=== PATIENT | female | born 1965 ===

== ENCOUNTER 2017-12-12 08:15 | Inpatient (IN) | payer BC ==
[~2017-12-12 08:15] MED LIST: Acetaminophen TAB* 325 MG PO ONE; Buffered Lidocaine 0.9% SYRIN* 5 ML/SYR SYRINGE INTRADERM ONE; Famotidine IV* 10 MG/ML 2 ML (20 mg) IV ONE; Ondansetron INJ* 2 MG/ML VIAL IV ONE
[2017-12-12] MEDS ORDERED: ROPIVACAINE 5 MG/ML 30 ML BTL (0.5%) ONE (09:00)
[2017-12-12] MEDS ORDERED: Famotidine IV* 10 MG/ML 2 ML (20 mg) ONE (09:00)
[2017-12-12] MEDS ORDERED: fentaNYL* 50 MCG/ML 2 ML VIAL (100 MCG VIAL) ONE ×4 (09:00→15:14)
[2017-12-12] MEDS ORDERED: Midazolam* 1 MG/ML 10 ML VIAL (10 MG) ONE (09:00)
[2017-12-12] MEDS ORDERED: Propofol* 10 MG/ML 20 ML BTL IV PUSH ONE (09:00)
[2017-12-12] MEDS ORDERED: KETAMINE HCL* 50 MG/ML 10 ML VIAL ONE (09:00)
[2017-12-12] MEDS ORDERED: Dexamethasone IV* 4 MG/ML 1 ML (4 MG) ONE (09:00)
[2017-12-12] MEDS ORDERED: Lidocaine 2% PF * 5 ML VIAL ONE (09:00)
[2017-12-12] MEDS ORDERED: Ondansetron ODT TAB* 4 MG ONE ×3 (09:00→14:43)
[2017-12-12] MEDS ORDERED: Acetaminophen TAB* 325 MG ONE (09:00)
[2017-12-12] MEDS ORDERED: ceFAZolin 2 GM PREMIX (*) 2 GM/50 ML BAG IVPB ONE (09:00)
[2017-12-12] MEDS ORDERED: Buffered Lidocaine 0.9% SYRIN* 5 ML/SYR SYRINGE ONE (09:01)
[2017-12-12] MEDS ORDERED: Bupivacaine 0.5% PF 10 ML VIAL INJ ONE (10:35)
[2017-12-12] MEDS ORDERED: Lidocaine 1% MPF wEPI 200,000* 30 ML SDV ONE (10:35)
[2017-12-12] MEDS ORDERED: Phenylephrine INJ* 10 MG/ML 1 ML VIAL (10 MG) ONE (11:05)
[2017-12-12] MEDS ORDERED: Ketorolac INJ* 30 MG/ML 1 ML VIAL ONE (11:38)
[2017-12-12] MEDS ORDERED: Naloxone* 0.4 MG/ML 1 ML VIAL IV PRN (12:03)
[2017-12-12] MEDS ORDERED: DiMENhydriNATE IV* 50 MG/ML VIAL IV PUSH PRN (12:03)
[2017-12-12] MEDS ORDERED: Ondansetron ODT TAB* 4 MG PO PRN (12:03)
[2017-12-12] MEDS ORDERED: HYDROmorphone INJ* 1 MG/ML CARPUJECT SYRINGE IV PRN (12:03)
[2017-12-12] MEDS ORDERED: HYDROmorphone INJ* 0.5 MG/0.5 ML SYRINGE ONE ×2 (12:49→12:53)
[2017-12-12] MEDS ORDERED: Magnesium Hydroxide LIQ* 30 ML UDC PO PRN (13:17)
[2017-12-12] MEDS ORDERED: diPHENhydraMINE IV* 50 MG/ML 1 ml VIAL (BENADRYL) IV PRN (13:17)
[2017-12-12] MEDS ORDERED: diPHENhydraMINE PO* 25 MG PO PRN (13:17)
[2017-12-12] MEDS ORDERED: Morphine VIAL* 4 MG/ML VIAL (1 ml vial) IV PRN (13:17)
[2017-12-12] MEDS ORDERED: HYDROmorphone INJ* 2 MG/ML CARPUJECT SYRINGE ONE (13:51)
[2017-12-12] MEDS: fentaNYL* 50 MCG/ML 2 ML VIAL (100 MCG VIAL) IV PRN ×3 (13:54→15:18)
[2017-12-12] MEDS ORDERED: DiMENhydriNATE IV* 50 MG/ML VIAL ONE (14:06)
--- NOTE | 2017-12-12 14:06 | RAD ---
Indication: Bipolar right knee arthroplasty. 2 views of the right knee demonstrates right knee replacement in satisfactory position. No evidence of periprosthetic fracture is noted. Surgical clips are noted. IMPRESSION: Right knee replacement in satisfactory position.
[2017-12-12] MEDS ORDERED: Dextrose 50% Syringe 50 ML* 25 GM/50 ML SYRINGE IV PUSH PRN (14:31)
[2017-12-12] MEDS: D5W 1/2 NS 1000 ML BAG* 1,000 ML IV SCH (16:25)
[2017-12-12] MEDS: Acetaminophen TAB* 325 MG PO SCH ×2 (16:33→21:37)
[2017-12-12] MEDS ORDERED: traMADol TAB* 50 MG ONE (16:39)
[2017-12-12] MEDS ORDERED: oxyCODONE TAB* 5 MG TAB ONE (16:39)
[2017-12-12] MEDS: traMADol TAB* 50 MG PO SCH ×2 (16:41→21:36)
[2017-12-12] MEDS: oxyCODONE TAB* 5 MG TAB PO PRN (16:42)
[2017-12-12] MEDS ORDERED: Warfarin TAB(*) 10 MG PO ONE (17:00)
[2017-12-12] MEDS: Insulin LISPRO* 1 UNITS UNIT SUBCUT SCH (18:31)
[2017-12-12] MEDS: ceFAZolin 1 GM in Dextrose (*) 1 GM/50 ML BAG IVPB SCH (19:41)
--- NOTE | 2017-12-12 21:31 | CONS ---
HOSPITAL MEDICINE CONSULTATION REPORT: DATE OF CONSULT: 12/12/17 ATTENDING PHYSICIAN: Dr. Mejia Hughes. CONSULTING PHYSICIAN: Dr. Feliz Anderson (dictation provided by Mamta Cisse NP) . REASON FOR CONSULT: Medical co-management in a patient admitted for right total knee arthroplasty. HISTORY OF PRESENT ILLNESS: Ms. Fernandez is a 52-year-old female with a past medical history of hypertension; report of MA 32 years ago, which would have been at age 20; diabetes, who presents to the hospital today with plan for a right total knee arthroplasty with Dr. Mejia Hughes. Please see the dictated H and P from Dr. Hughes for complete details, but in brief, the patient had ongoing pain to her right knee for over 10 years without much improvement with conservative medical therapy and therefore opted for surgical intervention today. Prior to surgery, the patient did have preoperative clearance with her primary care provider, Zina Lopez DO. It was noted there that the patient has had no report of chest pain or shortness of breath keeping with her activity level. It was noted also that she had an echocardiogram in 2016 as well as a Holter monitor in 2017, which showed only benign PVCs. In addition, her diabetes is under good control on the current regimen. PAST MEDICAL HISTORY: 1. Type 2 diabetes, non-insulin dependent. 2. Hypertension. 3. Osteoarthritis. 4. History of question MA 32 years ago at the time of the . 5. Diverticulitis. 6. PVCs. MEDICATIONS: 1. Potassium 1 tab p.o. daily. 2. Pioglitazone 30 mg p.o. q.a.m. 3. Hydrochlorothiazide 50 mg p.o. q.a.m. 4. Gabapentin 100 mg p.o. q.a.m. 5. Diclofenac 50 mg p.o. q.a.m. 6. Duloxetine DR 60 mg p.o. q.a.m. 7. Bisoprolol 10 mg p.o. q.a.m. 8. Amlodipine 5 mg p.o. q.a.m. ALLERGIES: To CODEINE, LISINOPRIL, METOPROLOL, SULFA ANTIBIOTICS, and SUCCINATE. FAMILY HISTORY: The patient reports family history positive for "heart troubles ," diabetes, and cancer. SOCIAL HISTORY: She has never been a smoker. No report of alcohol use. She lives with her , who is her healthy proxy. REVIEW OF SYSTEMS: A very brief 14-point review of systems was completed with Ms. Fernandez in the immediate postoperative period as she was very drowsy, which she did not offer any acute complaints or positive findings. PHYSICAL EXAM: Vital Signs: Temperature 97.7, pulse rate 77, respiratory rate 11, O2 saturation 94% on 4 L nasal cannula, blood pressure 94/51. General: Ms. Fernandez is lying in the bed. She is very drowsy, but awakens easily to voice. Neuro: She is again drowsy, awakens easily to voice. She is oriented x3. She moves all extremities equally. There is no facial asymmetry or focal weakness. Extraocular movements are intact. Heart: S1, S2. No murmur, rub, or gallop, and regular. Lungs are clear to auscultation bilaterally with no accessory muscle use and good aeration. The abdomen is soft, nontender with bowel sounds positive x4. Extremities: No cyanosis or edema. Skin is intact other than the right knee incision, which was not assessed as this is the immediate postoperative period. LABORATORY DATA: Preoperatively, the WBC was 9.2, hemoglobin 14.4, hematocrit 42%, platelet count 330. Sodium 138, potassium 3.4, chloride 96, serum bicarbonate 33, BUN 10, creatinine 0.77, glucose 179. Last available hemoglobin A1c was 5.9 on 08/30/17. ASSESSMENT AND PLAN: Ms. Fernandez is a 52-year-old female with past medical history of diabetes, report of myocardial infarction 32 years ago at age 20 during a C- section, and hypertension, who presents today to the hospital with plan for right total knee arthroplasty. Our recommendations are as follows: 1. Postop day #0 status post right total knee arthroplasty: Management of the patient will continue to be per orthopedic services team. PT and occupational therapy have been ordered. Pain medication and bowel regimen have been ordered. We will continue to follow along with H and H to assess for acute blood loss anemia. 2. Hypertension. Plan to continue bisoprolol with hold parameters. We will hold amlodipine and hydrochlorothiazide in the immediate perioperative period. The patient's blood pressure is running on the lower side at this point. 3. Type 2 diabetes. Plan to hold pioglitazone and provide blood glucoses q.a.c. with lispro sliding scale. 4. DVT prophylaxis with warfarin per Ortho. 5. Code status is full code. 6. Disposition: To surgical floor. TIME SPENT: Approximately 60 minutes was spent on the consultation of this patient with more than half the time spent with her at the bedside reviewing the events leading up to this hospitalization, performing the physical examination, and reviewing my plan of care. MAMTA CISSE NP [id number]/[facility] #: [id number] IVANNA
[2017-12-12] MEDS: Docusate CAP* 100 MG PO SCH (21:36)
[2017-12-12] MEDS: Magnesium Hydroxide LIQ* 30 ML UDC PO SCH (21:38)
[2017-12-13] MEDS: D5W 1/2 NS 1000 ML BAG* 1,000 ML IV SCH (02:32)
[2017-12-13] MEDS: traMADol TAB* 50 MG PO SCH ×5 (02:45→21:15)
[2017-12-13] MEDS: ceFAZolin 1 GM in Dextrose (*) 1 GM/50 ML BAG IVPB SCH ×2 (02:49→11:54)
[2017-12-13] MEDS: Acetaminophen TAB* 325 MG PO SCH ×3 (06:06→22:12)
[2017-12-13 07:05] LABS: Hematocrit 34 % (35-47); Hemoglobin 11.8 g/dl (12.0-16.0); Mean Platelet Volume 8.2 um3 (7.4-10.4); Platelet Count 270 10^3/ul (150-450)
[2017-12-13 07:16] LABS: INR 0.94 (0.77-1.02)
[2017-12-13 07:20] LABS: EGFR Non-African American 90.5 (>60)
--- NOTE | 2017-12-13 07:29 | OP ---
DATE OF OPERATION: 12/12/17 - ROOM #343 DATE OF : 63 SURGEON: Mejia Hughes MD MEAT AND POULTRY INSPECTOR: ANASTASIIA Gates ANESTHESIA: General. PRE-OP DIAGNOSIS: Osteoarthritis, right knee POST-OP DIAGNOSIS: Osteoarthritis, right knee OPERATIVE PROCEDURE: Right total knee arthroplasty. ESTIMATED BLOOD LOSS: Less than 50 cc. COMPLICATIONS: None. HARDWARE: Ronna Persona #4 femur, D tibia, 10-mm polyethylene, 32-mm all- polyethylene patellar-button. SUMMARY: Ms. Fernandez is a 52-year-old female who has had a long history of troubles with both of her knees. She had undergone a left medial compartment arthroplasty over 10 years ago, and even that is giving her troubles. The right knee had continued to give her more pain and troubles and is not just on the medial side, but also in the patellofemoral compartment. She had some very specific spurs in the patellofemoral compartment and was [id number] in the medial compartment. I discussed with her total knee arthroplasty. She had worked well to decrease her pain and improve her function versus surgery such as infection, scar formation, stiffness, DVT, pulmonary embolism, hardware failure, and continued pain with some of the risks discussed. She had been declared medically optimized and wished to proceed. DESCRIPTION OF PROCEDURE: The patient was brought to the OR and general anesthesia was established. Hidalgo catheter was placed. Tourniquet was placed over the proximal right thigh and was used during the case. Total tourniquet time would be 72 minutes. Moriah Friedman was present for all stages of the case and including prepping, positioning, retracting and placement of the components. The case could not have been done without legislative assistant. Right knee was prepped and then draped. Skin over the incisional area was infiltrated using 10 cc of 0.5% Marcaine mixed with 1% lidocaine with epinephrine. Total of 60 cc of that mixture would be used including 10 cc in each of the gutters, 20 behind the knee and another 10 in the suprapatellar pouch. Esmarch was used to exsanguinate the leg and the tourniquet was raised. Tourniquet time would be approximately 72 minutes. Incision was made centered about patellar was carried down to the medial side of the tibial tubercle. Small bleeders encountered were ligated using electrocautery. Extensor mechanism was exposed and a sharp parapatellar arthrotomy was made. Quite a bit of clear yellowish joint fluid was encountered. Soft tissues were sharply elevated from the medial side of the tibia, and the fat pad was sharply excised. Patella measured 23 mm in thickness and a nice 10-mm cut was taken. Patella was then easily subluxated laterally and the knee was flexed up. Distal femur was nicely exposed and a step drill was used to open the femoral canal. Intramedullary guide was placed and adjusted until it was parallel with the epicondyle. Distal femoral cutting guide was then pinned into place and the intramedullary guide was removed. Guide had been set at 2 mm and 2 degrees, as I did not want to take a significant amount of bone from the lateral femoral condyle. The cut appeared that it would not and the distal femoral cut was taken. Cut appeared to be benign. Sizer was place and she sat between 4 and 5. Four block was called for and holes were drilled. Four cutting block was placed and the superior drill hole was run and the drill came out nicely right on the top side of the femur. Anterior and posterior femoral cuts followed by the chamfer cuts were taken. Cutting guide was removed and excess bone was removed. Attention was turned to the tibia. Step drill was used to open the tibial canal, but even with the wider part having gone into most of the foot print of the ACL, I feel difficulty trying to seek the intramedullary guide and it seemed to sit a little bit towards a valgus angle. Extramedullary guide was then called for and measured, so that we would take 2 mm from the worn on the medial side. Cutting guide was then pinned into place and the proximal tibial cut was taken. A 10 spacer block was placed and the cut appeared to be excellent. In full extension, she locked out nicely with good stability and in flexion, she was little bit lose which was appropriate, as this system is designed to take 2 mm more posteriorly than distally. Tibia was sized and the E seemed to have to rotate more externally in order to be properly seated, so D was selected. Tibia was then pinned into place and the proximal tibia was drilled and then punched. Attention was returned to the femur. Femoral trial was placed and the notch cut was finished and the stent holes were drilled. She was trialed with a 10 polyethylene and came out nicely into full extension, and still flexed quite well. Patella wants to subluxate about every other time and patella was sized 32 sat nicely and holes were drilled and trial was placed with the trial on the patella tracking now was fine. Trial instrumentation was removed, and the knee was copiously pulse lavaged. Cement was being prepared. Tibia followed by femur and patella were all cemented into place. Excess cement was removed and the cement was allowed to harden. Once the cement was hardened , the knee was again searched for excess cement and a few small pieces were found. Knee was again copiously pulse lavaged. She was again trialed with the 10, and the same wonderful motion and stability. A 10-polyethylene was then snapped into place. Knee was again copiously pulse lavaged and the parapatellar arthrotomy was repaired using interrupted #1 Vicryl sutures. Subcutaneous tissues were reapproximated using 2-0 Vicryl. Skin was closed using cayla. Sterile dressing and a Cry/Cuff were applied in the OR. The patient was then awakened in the OR and was stable on transferred to the recovery room. [id number]/[facility] #: [id number] IVANNA
[2017-12-13] MEDS: oxyCODONE TAB* 5 MG TAB PO PRN ×3 (07:53→21:15)
[2017-12-13] MEDS: Cyclobenzaprine TAB* 10 MG PO PRN ×2 (07:54→15:26)
--- NOTE | 2017-12-13 08:45 | PN ---
Progress Note - Progress Note Date of Service: 12/13/17 SOAP: Subjective: patient in bed with moderate right knee pain, reports falling in bathroom about 1 hour ago with increased knee pain Objective: Vital Signs Temp Pulse Resp BP Pulse Ox 98.5 F 80 16 119/42 97 12/13/17 07:25 12/13/17 07:25 12/13/17 07:54 12/13/17 07:25 12/13/17 07:25 Laboratory Last Values Hgb 11.8 g/dl (12.0-16.0) L 12/13/17 06:38 Hct 34 % (35-47) L 12/13/17 06:38 Plt Count 270 10^3/ul (150-450) 12/13/17 06:38 MPV 8.2 um3 (7.4-10.4) 12/13/17 06:38 INR (Anticoag Therapy) 0.94 (0.77-1.02) 12/13/17 06:38 Sodium 137 mmol/L (135-145) 12/13/17 06:38 Potassium 3.6 mmol/L (3.5-5.0) 12/13/17 06:38 Chloride 99 mmol/L (101-111) L 12/13/17 06:38 Carbon Dioxide 31 mmol/L (22-32) 12/13/17 06:38 Anion Gap 7 mmol/L (2-11) 12/13/17 06:38 BUN 13 mg/dL (6-24) 12/13/17 06:38 Creatinine 0.68 mg/dL (0.51-0.95) 12/13/17 06:38 Est GFR ( Amer) 109.5 (>60) 12/13/17 06:38 Est GFR (Non-Af Amer) 90.5 (>60) 12/13/17 06:38 BUN/Creatinine Ratio 19.1 (8-20) 12/13/17 06:38 Glucose 130 mg/dL (70-100) H 12/13/17 06:38 POC Glucose (mg/dL) 191 mg/dL (70-100) H 12/12/17 16:45 Calcium 8.9 mg/dL (8.6-10.3) 12/13/17 06:38 incision: c/d/i PE:able to dorsi flex/plantar flex, 2+DP pulse, intact sensation Assessment: s/p right TKA; POD #1 Plan: 1) urgent right knee x ray ordered; await results 2) PT/OT-WBAT 3) Abx for 24 hours post-op 4) Heparin/Coumadin for DVT prophylaxis
[2017-12-13] MEDS ORDERED: Bisoprolol TAB* 5 MG PO SCH (09:00)
[2017-12-13] MEDS ORDERED: Pioglitazone TAB* 30 MG PO SCH (09:00)
[2017-12-13] MEDS: DULoxetine DR CAP* 60 MG CAP.DR PO SCH (09:06)
[2017-12-13] MEDS: Gabapentin CAP(*) 100 MG PO SCH (09:07)
[2017-12-13] MEDS: Potassium Chlor TAB* 20 MEQ TAB.ER PO SCH (09:07)
[2017-12-13] MEDS: Docusate CAP* 100 MG PO SCH ×2 (09:07→20:52)
[2017-12-13] MEDS: Bisoprolol TAB* 5 MG PO SCH (09:08)
[2017-12-13] MEDS: Magnesium Hydroxide LIQ* 30 ML UDC PO SCH ×2 (09:08→20:54)
[2017-12-13] MEDS: Insulin LISPRO* 1 UNITS UNIT SUBCUT SCH ×3 (09:16→18:24)
[2017-12-13] MEDS: Morphine VIAL* 4 MG/ML VIAL (1 ml vial) IV PRN ×3 (10:07→17:06)
--- NOTE | 2017-12-13 13:16 | RAD ---
Indication: Right knee replacement. 2 views of the right knee demonstrates right knee replacement in satisfactory position. Bipolar knee arthroplasty is noted. No evidence of periprosthetic fracture is noted. IMPRESSION: Right knee replacement. No definite evidence of periprosthetic fracture.
[2017-12-13] MEDS: Heparin VIAL(*) 5000 UNITS/ML VIAL (FIVE THOUSAND) SUBCUT SCH ×2 (15:30→22:13)
--- NOTE | 2017-12-13 16:24 | PN ---
Subjective Date of Service: 12/13/17 Interval History: Patient complains of severe pain in leg after mechanical fall related to tipping of the cover on the toilet as she was sitting down. Patient denies head trauma or LOC but states that she feels like the back of her thigh is strained and occasionally has shooting pain down the front of her leg. Patient denies F/C , N/V, abdominal pain, CP, SOB, dysuria, or other pain. Patient was recently changed from metformin to pioglitazone and reports better control of her diabetes. Family History: Unchanged from Admission Social History: Unchanged from Admission Past Medical History: Unchanged from Admission Objective Active Medications: Acetaminophen (Tylenol Tab*) 975 mg PO Q8HR [facility] Last Admin: 12/13/17 15:26 Dose: 975 mg Bisoprolol Fumarate (Zebeta Tab*) [facility] [place] Last Admin: 12/13/17 09:08 Dose: 10 mg Cyclobenzaprine HCl (Flexeril Tab*) 10 mg PO TID PRN PRN Reason: SPASMS Last Admin: 12/13/17 15:26 Dose: 10 mg Dextrose (D50w Syringe 50 Ml*) 12.5 gm IV PUSH .FOR FS < 60 - SS PRN PRN Reason: FS < 60 Diphenhydramine HCl (Benadryl Iv*) 25 mg IV Q6H PRN PRN Reason: itching Diphenhydramine HCl (Benadryl Po*) 25 mg PO Q6H PRN PRN Reason: itching Docusate Sodium (Colace Cap*) 100 mg PO BID [facility] Last Admin: 12/13/17 09:07 Dose: 100 mg Duloxetine HCl (Cymbalta Cap*) 60 mg PO QAM [facility] Last Admin: 12/13/17 09:06 Dose: 60 mg Gabapentin (Neurontin Cap(*)) 100 mg PO QAM [facility] Last Admin: 12/13/17 09:07 Dose: 100 mg Heparin Sodium (Porcine) (Heparin Vial(*)) 5,000 units SUBCUT Q8HR [facility] Last Admin: 12/13/17 15:30 Dose: 5,000 units Dextrose/Sodium Chloride (D5w 1/2 Ns 1000 Ml Bag*) 1,000 mls @ 100 mls/hr IV PER RATE [facility] Last Admin: 06/26/18 02:32 Dose: 100 mls/hr Insulin Human Lispro (Humalog*) 0 units SUBCUT AC [facility]; Protocol Last Admin: 12/13/17 12:08 Dose: 2 unit Magnesium Hydroxide (Milk Of Magnesia Liq*) 30 ml PO BID [facility] Last Admin: 12/13/17 09:08 Dose: 30 ml Magnesium Hydroxide (Milk Of Magnesia Liq*) 30 ml PO Q6H PRN PRN Reason: constipation Morphine Sulfate (Morphine Vial*) 2 mg IV Q2H PRN PRN Reason: PAIN - UNRELIEVED Last Admin: 12/13/17 07:20 Dose: 2 mg Morphine Sulfate (Morphine Vial*) 4 mg IV Q2H PRN PRN Reason: PAIN - UNRELIEVED Last Admin: 12/13/17 12:08 Dose: 4 mg Oxycodone HCl (Roxycodone Tab*) 5 mg PO Q4H PRN PRN Reason: PAIN - SEVERE Last Admin: 12/13/17 07:53 Dose: 5 mg Pharmacy Profile Note (Coumadin Daily Reminder*) 1 note FOLLOW UP 1700 [facility] Potassium Chloride (Klor Con Er Tab*) 20 meq PO DAILY [facility] Last Admin: 12/13/17 09:07 Dose: 20 meq Tramadol HCl (Ultram*) 50 mg PO Q6H [facility] Last Admin: 12/13/17 15:27 Dose: 50 mg Warfarin Sodium (Coumadin Tab(*)) 8 mg PO ONCE@1700 [facility]; Protocol Stop: 12/13/17 17:01 Vital Signs - 8 hr 12/13/17 12/13/17 12/13/17 08:20 09:00 09:07 Temperature Pulse Rate Respiratory 16 16 16 Rate Blood Pressure (mmHg) O2 Sat by Pulse 97 Oximetry 12/13/17 12/13/17 12/13/17 10:00 10:07 11:14 Temperature 98.9 F Pulse Rate 65 Respiratory 16 16 16 Rate Blood Pressure 110/47 (mmHg) O2 Sat by Pulse 96 Oximetry 12/13/17 12/13/17 12/13/17 11:15 12:08 13:36 Temperature Pulse Rate Respiratory 16 16 16 Rate Blood Pressure (mmHg) O2 Sat by Pulse Oximetry 12/13/17 12/13/17 12/13/17 13:43 15:26 15:27 Temperature 98.3 F Pulse Rate 69 Respiratory 24 16 Rate Blood Pressure 107/56 (mmHg) O2 Sat by Pulse 97 100 Oximetry 12/13/17 16:00 Temperature Pulse Rate Respiratory Rate Blood Pressure (mmHg) O2 Sat by Pulse 100 Oximetry Oxygen Devices in Use Now: None Appearance: Patient is a 52yo female who appears stated age and is sitting in the bed in NAD. Eyes: No Scleral Icterus, PERRLA Ears/Nose/Mouth/Throat: NL Teeth, Lips, Gums, Clear Oropharnyx, Mucous Membranes Moist Neck: NL Appearance and Movements; NL JVP, Trachea Midline Respiratory: Symmetrical Chest Expansion and Respiratory Effort, Clear to Auscultation Cardiovascular: NL Sounds; No Murmurs; No JVD, RRR, No Edema Lymphatic: No Cervical Adenopathy Extremities: No Edema, No Clubbing, Cyanosis, - - Right knee covered in bulky dressing. Skin: No Nodules or Sclerosis Neurological: Alert and Oriented x 3, NL Sensation, NL Muscle Strength and Tone , - - CN II-XII intact. Result Diagrams: 12/13/17 06:38 12/13/17 06:38 Assess/Plan/Problems-Billing Assessment: Patient is a 52yo female with a PMH for DM II, HTN, S/P a RTKA who had a mechanical fall in the bathroom with increased pain but no hardware disruption and is otherwise doing well. - Patient Problems (1) Post-operative state Current Visit: Yes Status: Acute Code(s): Z98.890 - OTHER SPECIFIED POSTPROCEDURAL STATES SNOMED Code(s): 27781848 Comment: S/P RTKA. Pain increased after mechnical fall. Pain control per primary team. Urinating well after fowler. H/H stable. (2) DM II (diabetes mellitus, type II), controlled Current Visit: Yes Status: Acute Code(s): E11.9 - TYPE 2 DIABETES MELLITUS WITHOUT COMPLICATIONS SNOMED Code(s): 97277336 Comment: Controlled with SSI. Resume Pioglitazone at discharge. (3) HTN (hypertension) Current Visit: Yes Status: Acute Code(s): I10 - ESSENTIAL (PRIMARY) HYPERTENSION SNOMED Code(s): 62010880 Comment: Low blood pressure overnight. Continue to hold HCTZ and Amlodipine. Resume when able. Continue Bisoprolol. (4) DVT prophylaxis Current Visit: Yes Status: Acute Code(s): ZMB3783 - SNOMED Code(s): 405863412 Comment: Lovenox to coumadin per primary team. (5) Full code status Current Visit: Yes Status: Acute Code(s): Z78.9 - OTHER SPECIFIED HEALTH STATUS SNOMED Code(s): 106483042 Status and Disposition: Inpatient. Disposition per primary team.
[2017-12-13] MEDS ORDERED: Warfarin TAB(*) 4 MG PO ONE (17:00)
[2017-12-13] MEDS ORDERED: Gabapentin CAP(*) 300 MG PO ONE (17:35)
[2017-12-13] MEDS: Ketorolac INJ* 30 MG/ML 1 ML VIAL IV PUSH SCH (18:24)
[2017-12-14] MEDS: Ketorolac INJ* 30 MG/ML 1 ML VIAL IV PUSH SCH ×3 (00:17→11:33)
[2017-12-14] MEDS: traMADol TAB* 50 MG PO SCH ×4 (02:00→19:19)
[2017-12-14] MEDS: Acetaminophen TAB* 325 MG PO SCH ×3 (06:01→21:29)
[2017-12-14] MEDS: Heparin VIAL(*) 5000 UNITS/ML VIAL (FIVE THOUSAND) SUBCUT SCH (06:02)
[2017-12-14] MEDS: Cyclobenzaprine TAB* 10 MG PO PRN ×2 (07:35→23:25)
[2017-12-14] MEDS: Insulin LISPRO* 1 UNITS UNIT SUBCUT SCH ×3 (07:35→17:10)
[2017-12-14 08:17] LABS: INR 2.39 (0.77-1.02)
[2017-12-14 08:19] LABS: Hematocrit 31 % (35-47); Hemoglobin 10.6 g/dl (12.0-16.0); Mean Platelet Volume 7.9 um3 (7.4-10.4); Platelet Count 267 10^3/ul (150-450)
[2017-12-14] MEDS: Bisoprolol TAB* 5 MG PO SCH (08:59)
[2017-12-14] MEDS: Docusate CAP* 100 MG PO SCH ×2 (09:17→19:19)
[2017-12-14] MEDS: Gabapentin CAP(*) 100 MG PO SCH ×3 (09:17→21:29)
[2017-12-14] MEDS: DULoxetine DR CAP* 60 MG CAP.DR PO SCH (09:17)
[2017-12-14] MEDS: Magnesium Hydroxide LIQ* 30 ML UDC PO SCH ×2 (09:17→19:20)
[2017-12-14] MEDS: oxyCODONE TAB* 5 MG TAB PO PRN ×2 (09:18→21:29)
[2017-12-14] MEDS: Potassium Chlor TAB* 20 MEQ TAB.ER PO SCH (09:18)
--- NOTE | 2017-12-14 10:13 | PN ---
Progress Note - Progress Note Date of Service: 12/14/17 SOAP: Subjective: []Patient seen at bedside. She is feeling well with no complaint of CP/SOB or dizziness. Objective: [] Vital Signs Temp 97.7 F 12/14/17 07:11 Pulse 58 12/14/17 07:11 Resp 18 12/14/17 09:18 BP 90/56 12/14/17 08:45 Pulse Ox 98 12/14/17 07:56 Intake & Output 12/13/17 12/14/17 12/14/17 18:59 06:59 18:59 Intake Total 3467 1040 465 Output Total 1400 700 300 Balance 2067 340 165 Intake: IV Fluids 717 D5W 1/2 NS 717 IVPB 75 ABX - CEFAZOLIN 75 Oral 2675 1040 465 Output: Urine 1400 700 300 Other: # Bowel Movements 0 Laboratory Last Values Hgb 10.6 g/dl (12.0-16.0) L 12/14/17 07:58 Hct 31 % (35-47) L 12/14/17 07:58 Plt Count 267 10^3/ul (150-450) 12/14/17 07:58 MPV 7.9 um3 (7.4-10.4) 12/14/17 07:58 INR (Anticoag Therapy) 2.39 (0.77-1.02) H 12/14/17 07:58 Sodium 137 mmol/L (135-145) 12/13/17 06:38 Potassium 3.6 mmol/L (3.5-5.0) 12/13/17 06:38 Chloride 99 mmol/L (101-111) L 12/13/17 06:38 Carbon Dioxide 31 mmol/L (22-32) 12/13/17 06:38 Anion Gap 7 mmol/L (2-11) 12/13/17 06:38 BUN 13 mg/dL (6-24) 12/13/17 06:38 Creatinine 0.68 mg/dL (0.51-0.95) 12/13/17 06:38 Est GFR ( Amer) 109.5 (>60) 12/13/17 06:38 Est GFR (Non-Af Amer) 90.5 (>60) 12/13/17 06:38 BUN/Creatinine Ratio 19.1 (8-20) 12/13/17 06:38 Glucose 130 mg/dL (70-100) H 12/13/17 06:38 POC Glucose (mg/dL) 113 mg/dL (70-100) H 12/14/17 07:26 Calcium 8.9 mg/dL (8.6-10.3) 12/13/17 06:38 General: Well appearing, NAD RLE: Dressing changed. Incision CDI without surrounding erythema. DF/PF intact. DP2+. Sensation intact distally. Assessment: s/p right TKA; POD #2 Plan: PT/OT WBAT Stop Heparin/Hold Coumadin today plan for DC tomorrow
--- NOTE | 2017-12-14 14:31 | PN ---
Subjective Date of Service: 12/14/17 Interval History: Patient in significant pain despite pain medications. Requested increased medications. Single episode of dizziness with walking. Patient has had fowler out and is urinating well. Patient has been passing gas and denies CP, SOB, Dizziness, F/C, N/V, abdominal pain, dysuria, palpitations, numbness or tingling , or other pain. Family History: Unchanged from Admission Social History: Unchanged from Admission Past Medical History: Unchanged from Admission Objective Active Medications: Acetaminophen (Tylenol Tab*) 975 mg PO Q8HR [facility] Last Admin: 12/14/17 13:17 Dose: 975 mg Bisoprolol Fumarate (Zebeta Tab*) 10 mg PO QAM [facility] Last Admin: 12/14/17 08:59 Dose: Not Given Cyclobenzaprine HCl (Flexeril Tab*) 10 mg PO TID PRN PRN Reason: SPASMS Last Admin: 12/14/17 07:35 Dose: 10 mg Dextrose (D50w Syringe 50 Ml*) 12.5 gm IV PUSH .FOR FS < 60 - SS PRN PRN Reason: FS < 60 Diphenhydramine HCl (Benadryl Iv*) 25 mg IV Q6H PRN PRN Reason: itching Diphenhydramine HCl (Benadryl Po*) 25 mg PO Q6H PRN PRN Reason: itching Docusate Sodium (Colace Cap*) 100 mg PO BID [facility] Last Admin: 12/14/17 09:17 Dose: 100 mg Duloxetine HCl (Cymbalta Cap*) 60 mg PO QAM [facility] Last Admin: 12/14/17 09:17 Dose: 60 mg Gabapentin (Neurontin Cap(*)) 300 mg PO QPM [facility] Gabapentin (Neurontin Cap(*)) 100 mg PO TID [facility] Last Admin: 12/14/17 13:17 Dose: 100 mg Insulin Human Lispro (Humalog*) 0 units SUBCUT AC [facility]; Protocol Last Admin: 12/14/17 11:38 Dose: Not Given Magnesium Hydroxide (Milk Of Magnesia Liq*) 30 ml PO BID [facility] Last Admin: 12/14/17 09:17 Dose: 30 ml Magnesium Hydroxide (Milk Of Magnesia Liq*) 30 ml PO Q6H PRN PRN Reason: constipation Morphine Sulfate (Morphine Vial*) 2 mg IV Q2H PRN PRN Reason: PAIN - UNRELIEVED Last Admin: 12/13/17 07:20 Dose: 2 mg Morphine Sulfate (Morphine Vial*) 4 mg IV Q2H PRN PRN Reason: PAIN - UNRELIEVED Last Admin: 12/13/17 17:06 Dose: 4 mg Oxycodone HCl (Roxycodone Tab*) 5 mg PO Q4H PRN PRN Reason: PAIN - SEVERE Last Admin: 12/14/17 09:18 Dose: 5 mg Pharmacy Profile Note (Coumadin Daily Reminder*) 1 note FOLLOW UP 1700 [facility] Last Admin: 12/13/17 17:11 Dose: 1 note Potassium Chloride (Klor Con Er Tab*) 20 meq PO DAILY [facility] Last Admin: 12/14/17 09:18 Dose: 20 meq Tramadol HCl (Ultram*) 50 mg PO Q6H [facility] Last Admin: 12/14/17 13:18 Dose: 50 mg Vital Signs - 8 hr 12/14/17 12/14/17 12/14/17 07:11 07:35 07:56 Temperature 97.7 F Pulse Rate 58 Respiratory 16 18 18 Rate Blood Pressure 91/54 (mmHg) O2 Sat by Pulse 98 98 Oximetry 12/14/17 12/14/17 12/14/17 08:00 08:45 09:17 Temperature Pulse Rate Respiratory 16 18 Rate Blood Pressure 90/56 (mmHg) O2 Sat by Pulse Oximetry 12/14/17 12/14/17 12/14/17 09:18 10:18 10:19 Temperature Pulse Rate Respiratory 18 16 18 Rate Blood Pressure (mmHg) O2 Sat by Pulse Oximetry 12/14/17 12/14/17 12/14/17 11:12 11:32 13:17 Temperature 97.7 F Pulse Rate 60 Respiratory 16 18 18 Rate Blood Pressure 106/40 (mmHg) O2 Sat by Pulse 98 Oximetry 12/14/17 13:18 Temperature Pulse Rate Respiratory 18 Rate Blood Pressure (mmHg) O2 Sat by Pulse Oximetry Oxygen Devices in Use Now: None Appearance: Patient is a 52yo female who appears stated age and is sitting in the bed in NAD. Eyes: PERRLA Ears/Nose/Mouth/Throat: NL Teeth, Lips, Gums, Clear Oropharnyx, Mucous Membranes Moist Neck: NL Appearance and Movements; NL JVP, Trachea Midline Respiratory: Symmetrical Chest Expansion and Respiratory Effort, Clear to Auscultation Cardiovascular: NL Sounds; No Murmurs; No JVD, RRR, No Edema - 1+ edema in RLE. Abdominal: NL Sounds; No Tenderness; No Distention, No Hepatosplenomegaly Lymphatic: No Cervical Adenopathy Extremities: No Edema, No Clubbing, Cyanosis Skin: No Nodules or Sclerosis, - - Right knee incision covered with bulky dressing. Neurological: Alert and Oriented x 3, NL Sensation, NL Muscle Strength and Tone , - - CN II-XII intact. Result Diagrams: 12/14/17 07:58 12/13/17 06:38 Assess/Plan/Problems-Billing Assessment: Patient is a 52yo female with a PMH for DM II, HTN, S/P a RTKA who had a mechanical fall in the bathroom with increased pain but no hardware disruption and is otherwise doing well. - Patient Problems (1) Post-operative state Current Visit: Yes Status: Acute Code(s): Z98.890 - OTHER SPECIFIED POSTPROCEDURAL STATES SNOMED Code(s): 31118936 Comment: S/P RTKA. Pain increased after mechnical fall. Pain control per primary team. Urinating well after fowler. H/H stable. (2) DM II (diabetes mellitus, type II), controlled Current Visit: Yes Status: Acute Code(s): E11.9 - TYPE 2 DIABETES MELLITUS WITHOUT COMPLICATIONS SNOMED Code(s): 78342311 Comment: Controlled with SSI. Resume Pioglitazone at discharge. (3) HTN (hypertension) Current Visit: Yes Status: Acute Code(s): I10 - ESSENTIAL (PRIMARY) HYPERTENSION SNOMED Code(s): 89108209 Comment: Continued Low blood pressure overnight. Continue to hold HCTZ and Amlodipine. Resume when able. Continue Bisoprolol with hold parameters. (4) DVT prophylaxis Current Visit: Yes Status: Acute Code(s): OOE1512 - SNOMED Code(s): 349298580 Comment: Lovenox to coumadin per primary team. (5) Full code status Current Visit: Yes Status: Acute Code(s): Z78.9 - OTHER SPECIFIED HEALTH STATUS SNOMED Code(s): 647926615 Status and Disposition: Inpatient. Disposition per primary team.
[2017-12-14] MEDS ORDERED: Gabapentin CAP(*) 300 MG PO SCH (18:00)
[2017-12-14] MEDS ORDERED: Acetaminophen TAB* 325 MG ONE (21:34)
[2017-12-15] MEDS: traMADol TAB* 50 MG PO SCH ×2 (01:55→07:17)
[2017-12-15] MEDS: Acetaminophen TAB* 325 MG PO SCH (05:56)
[2017-12-15 06:36] LABS: Hematocrit 30 % (35-47); Hemoglobin 10.1 g/dl (12.0-16.0); Mean Platelet Volume 8.3 um3 (7.4-10.4); Platelet Count 216 10^3/ul (150-450)
[2017-12-15 06:44] LABS: INR 2.95 (0.77-1.02)
[2017-12-15] MEDS: Insulin LISPRO* 1 UNITS UNIT SUBCUT SCH ×2 (07:16→11:32)
--- NOTE | 2017-12-15 08:12 | PN ---
Progress Note - Progress Note Date of Service: 12/15/17 SOAP: Subjective: resting comfortably in bed with moderate right knee pain; managed with current pain meds Objective: Vital Signs Temp Pulse Resp BP Pulse Ox 97.9 F 72 18 106/49 95 12/15/17 04:18 12/15/17 04:18 12/15/17 07:17 12/15/17 04:18 12/15/17 04:18 Laboratory Last Values Hgb 10.1 g/dl (12.0-16.0) L 12/15/17 05:45 Hct 30 % (35-47) L 12/15/17 05:45 Plt Count 216 10^3/ul (150-450) 12/15/17 05:45 MPV 8.3 um3 (7.4-10.4) 12/15/17 05:45 INR (Anticoag Therapy) 2.95 (0.77-1.02) H 12/15/17 05:45 Sodium 137 mmol/L (135-145) 12/13/17 06:38 Potassium 3.6 mmol/L (3.5-5.0) 12/13/17 06:38 Chloride 99 mmol/L (101-111) L 12/13/17 06:38 Carbon Dioxide 31 mmol/L (22-32) 12/13/17 06:38 Anion Gap 7 mmol/L (2-11) 12/13/17 06:38 BUN 13 mg/dL (6-24) 12/13/17 06:38 Creatinine 0.68 mg/dL (0.51-0.95) 12/13/17 06:38 Est GFR ( Amer) 109.5 (>60) 12/13/17 06:38 Est GFR (Non-Af Amer) 90.5 (>60) 12/13/17 06:38 BUN/Creatinine Ratio 19.1 (8-20) 12/13/17 06:38 Glucose 130 mg/dL (70-100) H 12/13/17 06:38 POC Glucose (mg/dL) 114 mg/dL (70-100) H 12/14/17 17:09 Calcium 8.9 mg/dL (8.6-10.3) 12/13/17 06:38 incision: c/d PE: NVI Assessment: s/p right TKA; POD#3 Plan: 1) pt/ot 2) continue DVT prophylaxis 3) home today; f/u with Saul in 4 weeks
[2017-12-15] MEDS: DULoxetine DR CAP* 60 MG CAP.DR PO SCH (08:35)
[2017-12-15] MEDS: Gabapentin CAP(*) 100 MG PO SCH (08:35)
[2017-12-15] MEDS: Potassium Chlor TAB* 20 MEQ TAB.ER PO SCH (08:35)
[2017-12-15] MEDS: Docusate CAP* 100 MG PO SCH (08:35)
[2017-12-15] MEDS: oxyCODONE TAB* 5 MG TAB PO PRN (08:35)
[2017-12-15] MEDS: Bisoprolol TAB* 5 MG PO SCH (08:36)
[2017-12-15] MEDS: Magnesium Hydroxide LIQ* 30 ML UDC PO SCH (08:36)
[2017-12-15 17:27] VITALS: BP 99/46
--- NOTE | 2017-12-15 22:42 | DS ---
DISCHARGE SUMMARY: DATE OF ADMISSION: 12/12/17 DATE OF DISCHARGE: 12/15/17 SURGEON: Mejia Hughes MD * (DICTATED BY ANASTASIIA MARTINEZ) PRINCIPAL DIAGNOSIS: Right knee osteoarthritis. DISCHARGE DIAGNOSIS: Right knee osteoarthritis. HISTORY OF PRESENT ILLNESS: Ms. Fernandez is a 52-year-old female with end-stage osteoarthritis to the right knee. She failed conservative management and elected to proceed with a right total knee arthroplasty, which was scheduled for 12/12/[address] Hughes. HOSPITAL COURSE: Ms. Fernandez was admitted electively to the hospital on 12/12/17 and underwent a right total knee arthroplasty. She tolerated the procedure well. Her postoperative course was fairly unremarkable. She was placed on Coumadin and heparin for DVT prophylaxis. She remained afebrile. She was using a walker for ambulation with physical therapy. She did fall on postoperative day #1 in the bathroom. X-rays were ordered which showed no evidence of a fracture. At the time of discharge, she was ambulating with the aid of a walker and her pain was well controlled with her current pain regimen. She was discharged home in stable condition. DISCHARGE MEDICATIONS: 1. Gabapentin 200 mg twice a day. 2. Gabapentin 300 mg q.h.s. 3. Oxycodone 5 mg every 4 hours as needed for pain. 4. Tramadol 50 mg every 6 hours as needed for pain. 5. Flexeril 10 mg 2 to 3 times a day as needed for spasms. 6. Colace 100 mg 2 to 3 tablets daily as needed for constipation. 7. Coumadin 2 mg tablets nightly at 5 p.m. 8. Bisoprolol 10 mg daily. PHYSICAL EXAM UPON DISCHARGE: She was afebrile. Her vital signs were stable. Her wound was clean, dry and healing well. She was distally neurovascularly intact and she was ambulating well with the aid of a walker. DISCHARGE INSTRUCTIONS: She was discharged home. She was given a prescription for oxycodone 5 mg every 4 hours for pain, tramadol 50 mg every 6 hours for pain , Coumadin 2 mg. Her INR at the time of discharge was 2.95. She was asked to hold the Coumadin , Tuesday and Tuesday night. Tuesday night, she will take 4 mg and VNS will recheck her INR on Tuesday. She has Flexeril 10 mg 2 to 3 times daily as needed for spasms, Colace for constipation. She will follow up with Dr. Hughes in 4 weeks. We have asked her to call our office sooner with any questions or concerns. She is weightbearing as tolerated. ANASTASIIA MARTINEZ [id number]/[facility] #: [id number] IVANNA
== END 2017-12-15 13:00 | disposition home health service (06) | DRG 302 ==
LOC: AA 08:15 → SSU 16:35
PROVIDERS: ADMIT Orthopaedic Surgery; ATTEND Orthopaedic Surgery
PROC: 0SRC0J9 Replacement of Right Knee Joint with Synthetic Substitute, Cemented, Open Approach (ICD-10-PCS; principal; 2017-12-12 10:00)
DX: M17.11 Unilateral primary osteoarthritis, right knee (principal); I10 Essential (primary) hypertension; Z96.652 Presence of left artificial knee joint; M54.41 Lumbago with sciatica, right side; E78.00 Pure hypercholesterolemia, unspecified; E11.9 Type 2 diabetes mellitus without complications; R42 Dizziness and giddiness; I25.2 Old myocardial infarction; Z88.5 Allergy status to narcotic agent; Z88.2 Allergy status to sulfonamides; Z88.8 Allergy status to other drugs, medicaments and biological substances; Z90.711 Acquired absence of uterus with remaining cervical stump; Z83.3 Family history of diabetes mellitus; W01.0XXA Fall on same level from slipping, tripping and stumbling without subsequent striking against object, initial encounter; Y92.238 Other place in hospital as the place of occurrence of the external cause; Z79.01 Long term (current) use of anticoagulants
CPT/HCPCS: 36415; 80048; 84132; 85014; 85018; 85049; 85610; 88305; 88311; A9270-GY; C1776; G8987-GO-CJ; G8988-GO-CJ; G8989-GO-CJ; J0690; J1100; J1170; J1240; J1644; J1885; J2001; J2250; J2270; J2704; J2795; J3010